=== PATIENT | female | born 1950 | race Caucasian/White ===

== ENCOUNTER 2017-05-11 07:50 | Day surgery (SDC) | payer MEDICARE, OTHER ==
[~2017-05-11 07:50] MED LIST: Povidone-Iodine 5% Sterile Ophth Soln 30 ML Bottle EYELF ONE
[2017-05-11] MEDS ORDERED: Sodium Chloride 0.9% 10 ML Syringe IV ONE (07:51)
[2017-05-11] MEDS ORDERED: Dexamethasone 4 MG/ML SDV IV ONE (07:51)
[2017-05-11] MEDS ORDERED: Midazolam 1 MG/ML 2 ML SDV IV ONE (07:51)
[2017-05-11] MEDS ORDERED: Moxifloxacin 0.5% Ophth Soln 3 ML Bottle EYELF ONE (08:00)
[2017-05-11] MEDS ORDERED: Acetaminophen 325 MG Tab PO PRN (08:00)
[2017-05-11] MEDS ORDERED: Phenylephrine 10% Ophth Soln 5 ML Bot EYELF PRN (08:00)
[2017-05-11] MEDS ORDERED: Sodium Chloride 0.9% 10 ML Syringe FLUSH PRN (08:00)
[2017-05-11] MEDS ORDERED: Phenylephrine 10% Ophth Soln 5 ML Bot EYELF ONE (08:00)
[2017-05-11] MEDS ORDERED: Cataract Ophth Solution EYELF ONE (08:00)
[2017-05-11] MEDS ORDERED: Ondansetron 4 MG/2 ML SDV IVPUSH PRN (08:00)
[2017-05-11] MEDS ORDERED: Timolol Maleate 0.5% Ophth Soln 5 ML Bottle EYELF ONE (08:00)
[2017-05-11] MEDS ORDERED: Proparacaine 0.5% Ophth Soln 15 ML Bottle EYELF ONE (08:00)
[2017-05-11] MEDS ORDERED: Tetracaine HCl/PF 0.5% 4 ML Bottle EYELF ONE (09:19)
[2017-05-11] MEDS ORDERED: Apraclonidine 0.5% Ophth Soln 5 ML Bot EYELF ONE (09:21)
[2017-05-11] MEDS ORDERED: Lidocaine 1% 30 ML SDV ONE (09:21)
[2017-05-11] MEDS ORDERED: Dexamethasone/Neomycin/Polymyxin B Ophth Oint 3.5 GM Tube EYELF ONE (09:22)
[2017-05-11] MEDS ORDERED: Vancomycin 500 MG SDV EYELF ONE (09:22)
[2017-05-11] MEDS ORDERED: Balanced Salt Solution Ophth Irrig 500 ML Bottle IOCULAR ONE (09:22)
[2017-05-11] MEDS ORDERED: Diclofenac Sodium 0.1% Ophth Soln 5 ML Bottle EYELF ONE (09:23)
[2017-05-11] MEDS ORDERED: Chondroitin Sulfate/Hyaluronate Sodium Ophth Inj 0.5 ML Syringe IOCULAR ONE (09:23)
[2017-05-11 10:52] VITALS: BP 129/57
--- NOTE | 2017-05-11 13:04 | OR ---
DATE: 05/11/2017 PREOPERATIVE DIAGNOSIS: Visually significant mixed cataract, left eye. POSTOPERATIVE DIAGNOSIS: Visually significant mixed cataract, left eye. PROCEDURE: Extracapsular cataract extraction with intraocular lens implant, left eye. ANESTHESIA: Topical/local MAC. COMPLICATIONS: None. INDICATION: The patient was seen in the clinic. She has complained of a slow progressive decrease in vision, difficulty driving. Clinical examination reveals visually significant mixed cataract. I explained options. I offered cataract surgery and I explained risks including but not limited to, infection, retinal detachment, loss of vision, need for additional surgery, amongst others. We discussed implant options. She has requested a monofocal implant targeting mild myopia. She is symptomatic, voiced an understanding with respect to risks and wished to proceed. OPERATIVE DESCRIPTION: After informed consent was obtained and the risks, benefits, and alternatives were explained, the patient was brought to the operative suite and topical anesthesia was administered. The patient was then prepped and draped in the sterile fashion and attention was placed on the left eye. A sterile lid speculum was placed into the left eye to allow operative exposure. A full-thickness paracentesis was made in the temporal portion of the operative eye. Preservative-free lidocaine 0.1 mL was injected into the anterior chamber followed by viscoelastic. A full-thickness corneal incision was then made into the anterior chamber. A bent needle cystotome was used to create a small azael in the anterior capsule. The capsulorrhexis forceps was then used to create a 360-degree curvilinear capsulorrhexis. The nucleus was then removed using a phacoemulsification handpiece and the remaining cortical material was then removed with irrigation and aspiration handpiece. Following removal of the cortical material, the capsular bag was then inspected and noted to be free of any holes or tears. Viscoelastic was then injected into the capsular bag and the intraocular lens was inserted into the capsular bag. The viscoelastic material was then removed from both the anterior and posterior chambers and from behind the IOL. The lens and capsular bag were then reinspected. The IOL was well centered and the capsular bag intact. The wound and paracentesis sites were inspected and hydrated with balanced saline solution. Both were found to be self- sealing. The intraocular pressure was assessed digitally and found to be within normal range. A good red reflex was noted at the completion of the procedure. No complications occurred during the operation. At the completion of the procedure, Espinoza Haney and Iopidine drops were placed into the operative eye. A sterile eye shield was placed over the operative eye and the patient was transported to the postoperative recovery area having tolerated the procedure well. Postoperative instructions were given along with a postoperative appointment. The patient was advised to call with any questions or concerns. No complications occurred. [facility] /[id number]
== END 2017-05-11 10:40 | disposition home or self-care (01) ==
LOC: DL.SDS 07:50
PROVIDERS: ATTEND Ophthalmology
DX: H25.812 Combined forms of age-related cataract, left eye (principal); Z79.899 Other long term (current) drug therapy
CPT/HCPCS: 00142; 66984; A9270; J1100; J2250; J3370; J7050; C1780

== ENCOUNTER 2017-05-18 08:42 | Day surgery (SDC) | payer MEDICARE, OTHER ==
[2017-05-18] MEDS ORDERED: Midazolam 1 MG/ML 2 ML SDV IV ONE (08:43)
[2017-05-18] MEDS ORDERED: Sodium Chloride 0.9% 10 ML Syringe IV ONE (08:43)
[2017-05-18] MEDS ORDERED: Dexamethasone 4 MG/ML SDV IV ONE (08:43)
[2017-05-18] MEDS ORDERED: Timolol Maleate 0.5% Ophth Soln 5 ML Bottle EYERT ONE (09:30)
[2017-05-18] MEDS ORDERED: Povidone-Iodine 5% Sterile Ophth Soln 30 ML Bottle EYERT ONE ×2 (09:30→09:56)
[2017-05-18] MEDS ORDERED: Acetaminophen 325 MG Tab PO PRN (09:30)
[2017-05-18] MEDS ORDERED: Cataract Ophth Solution EYERT ONE (09:30)
[2017-05-18] MEDS ORDERED: Ondansetron 4 MG/2 ML SDV IVPUSH PRN (09:30)
[2017-05-18] MEDS ORDERED: Phenylephrine 10% Ophth Soln 5 ML Bot EYERT ONE (09:30)
[2017-05-18] MEDS ORDERED: Phenylephrine 10% Ophth Soln 5 ML Bot EYERT PRN (09:30)
[2017-05-18] MEDS ORDERED: Proparacaine 0.5% Ophth Soln 15 ML Bottle EYERT ONE (09:30)
[2017-05-18] MEDS ORDERED: Moxifloxacin 0.5% Ophth Soln 3 ML Bottle EYERT ONE (09:30)
[2017-05-18] MEDS ORDERED: Sodium Chloride 0.9% 10 ML Syringe FLUSH PRN (09:30)
[2017-05-18] MEDS ORDERED: Tetracaine HCl/PF 0.5% 4 ML Bottle EYERT ONE (09:55)
[2017-05-18] MEDS ORDERED: Apraclonidine 0.5% Ophth Soln 5 ML Bot EYERT ONE (09:56)
[2017-05-18] MEDS ORDERED: Lidocaine 1% 30 ML SDV ONE (09:56)
[2017-05-18] MEDS ORDERED: Balanced Salt Solution Ophth Irrig 500 ML Bottle IOCULAR ONE (09:57)
[2017-05-18] MEDS ORDERED: Chondroitin Sulfate/Hyaluronate Sodium Ophth Inj 0.5 ML Syringe IOCULAR ONE (09:57)
[2017-05-18] MEDS ORDERED: Dexamethasone/Neomycin/Polymyxin B Ophth Oint 3.5 GM Tube EYERT ONE (09:57)
[2017-05-18] MEDS ORDERED: Vancomycin 500 MG SDV EYERT ONE (09:57)
--- NOTE | 2017-05-18 11:00 | OR ---
DATE: 05/18/2017 PREOPERATIVE DIAGNOSIS: Visually significant mixed cataract, right eye. POSTOPERATIVE DIAGNOSIS: Visually significant mixed cataract, right eye. PROCEDURE: Extracapsular cataract extraction with intraocular lens implant, right eye. ANESTHESIA: Topical/local MAC. COMPLICATIONS: None. INDICATION: Ms. Kelley was seen in the clinic. She has complained of a progressive change in vision. Clinical examination reveals 2 to 3+ nuclear and cortical cataract. Next, I explained options, I offered cataract surgery, and I explained risks. She is symptomatic and requested surgery. She understands the risks including the potential for vision loss. She requested a monofocal implant. OPERATIVE DESCRIPTION: After informed consent was obtained and the risks, benefits, and alternatives were explained, the patient was brought to the operative suite and topical anesthesia was administered. The patient was then prepped and draped in the sterile fashion and attention was placed on the right eye. A sterile lid speculum was placed into the right eye to allow operative exposure. A full-thickness paracentesis was made in the temporal portion of the operative eye. Preservative-free lidocaine 0.1 mL was injected into the anterior chamber followed by viscoelastic. A full-thickness corneal incision was then made into the anterior chamber. A bent needle cystotome was used to create a small azael in the anterior capsule. The capsulorrhexis forceps was then used to create a 360-degree curvilinear capsulorrhexis. The nucleus was then removed using a phacoemulsification handpiece, and the remaining cortical material was then removed with irrigation and aspiration handpiece. Following removal of the cortical material, the capsular bag was then inspected and noted to be free of any holes or tears. Viscoelastic was then injected into the capsular bag, and the intraocular lens was inserted into the capsular bag. The viscoelastic material was then removed from both the anterior and posterior chambers and from behind the IOL. The lens and capsular bag were then reinspected. The IOL was well centered and the capsular bag intact. The wound and paracentesis sites were inspected and hydrated with balanced saline solution. Both were found to be self-sealing. The intraocular pressure was assessed digitally and found to be within normal range. A good red reflex was noted at the completion of the procedure. No complications occurred during the operation. At the completion of the procedure, Maxitrol, Voltaren, and Iopidine drops were placed into the operative eye. A sterile eye shield was placed over the operative eye and the patient was transported to the postoperative recovery area having tolerated the procedure well. Postoperative instructions were given along with a postoperative appointment. The patient was advised to call with any questions or concerns. [facility] /[id number]
[2017-05-18 13:08] VITALS: BP 130/51
== END 2017-05-18 11:00 | disposition home or self-care (01) ==
LOC: DL.SDS 08:42
PROVIDERS: ATTEND Ophthalmology
DX: H25.811 Combined forms of age-related cataract, right eye (principal); J44.9 Chronic obstructive pulmonary disease, unspecified; K21.9 Gastro-esophageal reflux disease without esophagitis; E66.9 Obesity, unspecified; E11.36 Type 2 diabetes mellitus with diabetic cataract; Z88.0 Allergy status to penicillin; Z88.1 Allergy status to other antibiotic agents; Z88.8 Allergy status to other drugs, medicaments and biological substances; Z79.84 Long term (current) use of oral hypoglycemic drugs; Z79.899 Other long term (current) drug therapy; Z68.36 Body mass index [BMI] 36.0-36.9, adult
CPT/HCPCS: 00142; 66984; A9270; J1100; J2250; J3370; J7050; V2632

== ENCOUNTER 2018-11-13 07:28 | Day surgery (SDC) | payer MEDICARE, OTHER ==
[~2018-11-13 07:28] MED LIST changes: +Midazolam 1 MG/ML 2 ML SDV ONE; -Povidone-Iodine 5% Sterile Ophth Soln 30 ML Bottle EYELF ONE; +fentaNYL 100 MCG/2 ML SDV ONE
[2018-11-13] MEDS ORDERED: Midazolam 1 MG/ML 2 ML SDV IV ONE ×3 (07:29→08:44)
[2018-11-13] MEDS ORDERED: fentaNYL 100 MCG/2 ML SDV IV ONE ×3 (07:29→08:43)
[2018-11-13] MEDS ORDERED: Dextrose 5%-0.45% NaCl 1,000 ML IV SCH (07:30)
[2018-11-13 10:39] VITALS: BP 141/62
--- NOTE | 2018-11-13 13:53 | OR ---
DATE: 11/13/2018 PROCEDURES: Esophagogastroduodenoscopy, NBI, and multiple pinch biopsies. INSTRUMENT USED: GIF-HQ190 Olympus video panendoscope. PREMEDICATIONS: No oral or topical anesthesia used. Fentanyl 100 mcg intravenous, Versed 2 mg intravenous. The procedure was done under pulse oximetry, BP recording, and miniature set designer. INDICATION: Diabetic, on multiple medications with multiple abdominal symptoms and iron deficiency anemia. Esophagogastroduodenoscopy is performed for detection of any active erosive lesions, Rose esophagus and/or malignancy also under consideration, endoscopic hemostasis therapy if needed. PROCEDURE IN DETAIL: The scope was passed with ease. Adequate visualization of the esophagus was made from proximal to distal areas. No upper esophageal lesions identified. No distal esophageal stricture. No uphill or downhill esophageal varices. No Lub[place]-Rodriguez tear. No evidence of erosive esophagitis by Mckinley criteria. No esophageal polyp or tumor mass identified. Z-line was seen at around 39 cm distal to the oral verge, configuration consistent with grade 1 by ZAP classification. No proximal gastric varices noted. Gastric fundus examination by retroflexion showed no malignant lesions. Numerous diminutive benign-appearing polyps were noted in the gastric body and fundus. Gastric antrum showed diminutive polyps. Vertical areas of erythema as well as prominent pre-pyloric benign-appearing fold, biopsies were obtained from the pre- pyloric prominent folds. Pinch biopsies were also obtained from the gastric antrum and proximal body and sent for PyloriTek test for H. pylori and histopathology. Duodenal bulb showed no ulcer. Visualized second part of the duodenum was unremarkable. Multiple pinch biopsies, 4 in number, were taken from the second part of the duodenum and tissues were also obtained from the duodenal bulb at 9 and 12 o'clock positions and sent for any histopathologic evidence of celiac disease. No bleeding was noted from any of the visualized areas at the completion of examination. Photographs were taken of the duodenal bulb, gastric antrum, fundus, and distal esophagus. IMPRESSION: 1. Multiple gastric polyps. 2. Gastric antral erosions. The patient tolerated the procedure well. [facility] /[id number]
== END 2018-11-13 10:43 | disposition home or self-care (01) ==
LOC: DL.ENDO 07:28
PROVIDERS: ATTEND Internal Medicine Gastroenterology
DX: K29.50 Unspecified chronic gastritis without bleeding (principal); K25.9 Gastric ulcer, unspecified as acute or chronic, without hemorrhage or perforation; K31.7 Polyp of stomach and duodenum; K21.9 Gastro-esophageal reflux disease without esophagitis; K58.9 Irritable bowel syndrome, unspecified; D50.9 Iron deficiency anemia, unspecified; K31.89 Other diseases of stomach and duodenum; I12.9 Hypertensive chronic kidney disease with stage 1 through stage 4 chronic kidney disease, or unspecified chronic kidney disease; E11.22 Type 2 diabetes mellitus with diabetic chronic kidney disease; N18.9 Chronic kidney disease, unspecified; E66.09 Other obesity due to excess calories; E78.5 Hyperlipidemia, unspecified; H35.30 Unspecified macular degeneration; M19.90 Unspecified osteoarthritis, unspecified site; Z68.37 Body mass index [BMI] 37.0-37.9, adult
CPT/HCPCS: 43239; 87077; J2250; J3010; J7042

== ENCOUNTER 2020-04-23 10:08 | Emergency (ER) | payer MEDICARE, OTHER ==
--- NOTE | 2020-04-23 11:17 | EDM.PDOC ---
ED HPI GENERAL MEDICAL PROBLEM - General Chief Complaint: Cardiovascular Problem Stated Complaint: HIGH BLOOD PRESSURE 196/111 Time Seen by Provider: 04/23/20 11:05 Source of Information: Reports: Patient, RN, RN Notes Reviewed History Limitations: Reports: No Limitations - History of Present Illness INITIAL COMMENTS - FREE TEXT/NARRATIVE: Patient presents to the ED via personal vehicle with complaints of high blood pressure. The patient states she first noted her high blood pressure four days ago, 04/20/20, as she had a headache that did not improve with OTC analgesics. She notes she received the Relead COVID vaccine on 04/17/20, and feel her blood pressure has been elevated since this inoculation. She was subsequently seen at her primary care facility yesterday, 04/22/20, and Norvasc 5mg PO daily was added to her antihypertensive regimen, which includes Lisinopril 40mg and HCTZ 25mg daily. She states she checked her blood pressure this morning prior to administering her blood pressure medicines and was concerned about the reading of 180s systolic. She denies fever, shaking chills, vision changes, chest pain, palpitations, shortness of breath, or dyspepsia. She does attest to mild headache, but notes she has not taken any OTC analgesics for this problem. She denies tobacco, alcohol, or recreational drug use. - Related Data Allergies Allergy/AdvReac Type Severity Reaction Status Date / Time amitriptyline Allergy Muscle Verified 02/21/19 06:21 Aches cephalexin Allergy Cannot Verified 02/21/19 06:21 Remember indomethacin Allergy Cannot Verified 02/21/19 06:21 Remember nortriptyline HCl Allergy Other Verified 02/21/19 06:21 [From Pamelor] Penicillins Allergy Other Verified 02/21/19 06:21 simvastatin Allergy Muscle Verified 02/21/19 06:21 Aches tetracycline Allergy Nausea Verified 02/21/19 06:21 Home Meds: Home Meds Aspirin [Low Dose Aspirin EC] 81 mg PO DAILY 03/04/14 [History] Calcium Carbonate/Vitamin D3 [Sm Calcium 600 + Vit D 400 Tab] 1 tab PO DAILY 03/04/14 [History] Cetirizine [ZyrTEC] 10 mg PO DAILY 03/04/14 [History] Fenofibrate 160 mg PO DAILY 03/04/14 [History] Montelukast Sodium [Singulair] 10 mg PO DAILY 03/04/14 [History] Pravastatin [Pravachol] 10 mg PO BEDTIME 03/04/14 [History] Triamcinolone Acetonide [Nasacort AQ [place]] 55 mcg INH DAILY PRN 03/04/14 [History] hydroCHLOROthiazide [Hydrochlorothiazide] 25 mg PO DAILY 03/04/14 [History] lisinopriL [Prinivil] 40 mg PO DAILY 03/04/14 [History] metFORMIN [Glucophage] 1,000 mg PO BID 03/04/14 [History] Magnesium Oxide [Magnesium] 400 mg PO BEDTIME 05/09/17 [History] Pantoprazole Sodium [Protonix] 40 mg PO BID 05/09/17 [History] Methylcellulose [Citrucel] 1,000 mg PO BID 11/10/18 [History] Tolterodine Tartrate [Detrol LA] 4 mg PO BEDTIME 11/10/18 [History] Ascorbate Calcium [Vitamin C] 500 mg PO DAILY 01/22/19 [History] Glimepiride [Amaryl] 2 mg PO DAILY 02/20/19 [History] amLODIPine [Norvasc] 5 mg PO DAILY 04/23/20 [History] Past Medical History HEENT History: Reports: Allergic Rhinitis, Cataract, Impaired Vision, Macular Degeneration Cardiovascular History: Reports: High Cholesterol, Hypertension Respiratory History: Reports: None Gastrointestinal History: Reports: Chronic Constipation, GERD, Irritable Bowel Syndrome Genitourinary History: Reports: Chronic Renal Insuffiency, Other (See Below) Other Genitourinary History: urinary frequency and pressure [employer]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: Musculoskeletal History: Reports: Back Pain, Chronic Neurological History: Reports: None Psychiatric History: Reports: None, Anxiety Endocrine/Metabolic History: Reports: Diabetes, Type II, Obesity/BMI 30+ Hematologic History: Reports: Anemia, Iron Deficiency Immunologic History: Reports: None Oncologic (Cancer) History: Reports: None Dermatologic History: Reports: None - Infectious Disease History Infectious Disease History: Reports: Chicken Pox, Measles - Past Surgical History Head Surgeries/Procedures: Reports: None HEENT Surgical History: Reports: Cataract Surgery Cardiovascular Surgical History: Reports: None Respiratory Surgical History: Reports: None GI Surgical History: Reports: Colonoscopy, EGD Female Surgical History: Reports: Hysterectomy, Other (See Below) Other Female Surgeries/Procedures: CYSTOCELE, RECTOCELE REPAIR Musculoskeletal Surgical History: Reports: None Social & Family History - Family History Family Medical History: No Pertinent Family History - Caffeine Use Caffeine Use: Reports: Soda Caffeine Use Comment: 1-2 CANS DAILY - Living Situation & Occupation Living situation: Reports: , with Spouse ED ROS GENERAL - Review of Systems Review Of Systems: Comprehensive ROS is negative, except as noted in HPI. ED EXAM, GENERAL - Physical Exam Exam: See Below Exam Limited By: No Limitations General Appearance: Alert, WD/WN, No Apparent Distress Eye Exam: Bilateral Eye: EOMI, Normal Inspection, PERRL (4mm) Throat/Mouth: Normal Inspection, Normal Voice, No Airway Compromise Head: Atraumatic, Normocephalic Respiratory/Chest: No Respiratory Distress, Lungs Clear, Normal Breath Sounds, No Accessory Muscle Use, Chest Non-Tender Cardiovascular: Normal Peripheral Pulses, Regular Rate, Rhythm, No Edema, No Gallop, No JVD, No Murmur, No Rub Peripheral Pulses: 2+: Radial (L), Radial (R) GI/Abdominal: Normal Bowel Sounds, Soft, Non-Tender, No Distention, No Mass, Pelvis Stable Extremities: Normal Range of Motion, Non-Tender, Normal Capillary Refill, Pedal Edema (Trace, non-pitting bilaterally) Neurological: Alert, Oriented, CN II-XII Intact, Normal Cognition, Normal Gait, No Motor/Sensory Deficits Psychiatric: Normal Affect, Normal Mood Skin Exam: Warm, Dry, Intact, Normal Color, No Rash. No: Ecchymosis, Erythema, Jaundice, Mottled, Pallor, Petechiae Course - Vital Signs Last Recorded V/S: Last Vital Signs Temp 98.5 F 04/23/20 10:45 Pulse 89 04/23/20 10:45 Resp 18 04/23/20 10:45 BP 160/70 H 04/23/20 10:45 Pulse Ox 99 04/23/20 10:45 - Re-Assessments/Exams Free Text/Narrative Re-Assessment/Exam: 04/23/20 Labs and clinic note from Dr. Cesar was reviewed by specification writer. CBC, CMP, UA, and Lipid panel unremarkable for acute process. Troponin WNL. EKG for yesterday reveled SR with rate of 66, poor R-wave progression and Q-waves in the inferior leads; no signs of acute myocardial injury. CXR from yesterday showed borderline cardiomegaly; unremarkable for effusion, infiltrates or other acute findings. Blood pressure at this time has reduced to 150s systolic. As patient continues to deny and acute symptoms and blood pressure is improving will discharge her home. Patient instructed to continue on previously prescribed medications and continue with follow-up as originally scheduled. Patient educated on checking her blood pressure following the administration of morning antihypertensives and red flag signs and symptoms which would warrant reevaluation. Patient verb alized understanding and agreement with the plan of care. Departure - Departure Time of Disposition: 11:28 Disposition: Home, Self-Care 01 Condition: Good Clinical Impression: Hypertension Qualifiers: Hypertension type: unspecified Qualified Code(s): I10 - Essential (primary) hypertension Instructions: Hypertension, Adult, [id number] Forms: ED Department Discharge Additional Instructions: 1.) Continue with your previously prescribed antihypertension medications. If you would like to check your blood pressure, do so at least one hour after taking your medication. 2.) Keep your previously scheduled follow up appointment. 3.) Return to your primary care provider, or the emergency department, with any consistent headache that does not improved with medications, vision changes, chest pain, palpitations, or shortness of breath. Sepsis Event Note (ED) - Evaluation Sepsis Screening Result: No Definite Risk - Focused Exam Vital Signs: Vital Signs Temp Pulse Resp BP Pulse Ox 04/23/20 10:45 98.5 F 89 18 160/70 H 99
== END 2020-04-23 12:00 | disposition home or self-care (01) ==
LOC: DL.ED 10:08
CPT/HCPCS: 99283; 99283-25

== ENCOUNTER 2021-08-11 05:48 | Day surgery (SDC) | payer MEDICARE, OTHER ==
[~2021-08-11 05:48] MED LIST changes: +Dextrose 5%-0.45% NaCl 1,000 ML IV SCH; -Midazolam 1 MG/ML 2 ML SDV ONE; +Sodium Chloride 0.9% 10 ML Syringe FLUSH PRN; +Sodium Chloride 0.9% 10 ML Syringe FLUSH SCH; -fentaNYL 100 MCG/2 ML SDV ONE
[2021-08-11] MEDS ORDERED: Midazolam 1 MG/ML 2 ML SDV IV ONE ×7 (05:49→07:21)
[2021-08-11] MEDS ORDERED: fentaNYL 100 MCG/2 ML SDV IV ONE ×5 (05:49→07:24)
[2021-08-11] MEDS ORDERED: Midazolam 1 MG/ML 2 ML SDV ONE (06:12)
[2021-08-11] MEDS ORDERED: fentaNYL 100 MCG/2 ML SDV ONE (06:12)
[2021-08-11 09:33] VITALS: BP 123/72; PULSE 64
== END 2021-08-11 09:30 | disposition home or self-care (01) ==
LOC: DL.ENDO 05:48
PROVIDERS: ATTEND Internal Medicine Gastroenterology
DX: D12.3 Benign neoplasm of transverse colon (principal); K52.9 Noninfective gastroenteritis and colitis, unspecified; E66.09 Other obesity due to excess calories; K21.9 Gastro-esophageal reflux disease without esophagitis; F41.1 Generalized anxiety disorder; Z68.37 Body mass index [BMI] 37.0-37.9, adult; Z98.890 Other specified postprocedural states; Z01.812 Encounter for preprocedural laboratory examination; Z20.822 Contact with and (suspected) exposure to COVID-19
CPT/HCPCS: 45380; 45385; J2250; J3010; J7042; U0002; 88305